=== PATIENT | male | born 1990 | race Two or more races ===

== ENCOUNTER 2024-01-28 23:53 | Emergency (ER) | payer MEDICAID ==
[~2024-01-28] VITALS: Ht 170.2 cm; Wt 74.0 kg
[2024-01-29] MEDS ORDERED: codeine/proMETHazine 5ml UD syrup PO ONE (01:00)
[2024-01-29] MEDS ORDERED: GUAI120L55 PO (01:04)
[2024-01-29] MEDS: guaiFENesin 200mg/20mg codeine phos 10ml UD oral syrup PO ONE (01:28)
[2024-01-29 01:34] VITALS: BP 126/69; PULSE 84; RESP 18; O2SAT 98
[2024-01-29 01:46] VITALS: TEMP 98.6
== END 2024-01-29 01:48 | disposition home or self-care (01) ==
LOC: ER 23:54
DX: R05.9 Cough, unspecified (principal); R06.02 Shortness of breath; Z79.899 Other long term (current) drug therapy
CPT/HCPCS: 71045; 99283